=== PATIENT | female | born 1970 | race Caucasian/White ===

== ENCOUNTER → 2018-02-15 | Outpatient (REF) ==
[~2018-02-15] MED LIST: FLONASE NASAL S16 GM NS; NORCO 325 MG-51 TAB PO; NUVARING1 ICR VG; SINGULAIR 110 MG/TAB PO; ZOFRAN ODT4 MG PO
[2018-02-15 15:14] LABS: THYROID STIMULATING HORMONE 3.57 uIU/mL (0.465-4.680)
== END ==
LOC: ZLAB.WCH 14:24
PROVIDERS: Nurse Practitioner Family
DX: Z01.89 Encounter for other specified special examinations (principal)

== ENCOUNTER → 2018-02-22 | Outpatient (REF) | LOC: COL.CARD 16:20 | DX: Z01.818 Encounter for other preprocedural examination (principal) ==

== ENCOUNTER 2018-03-11 07:05 | Emergency (ER) | payer BC ==
[~2018-03-11] VITALS: Ht 162.6 cm; Wt 59.1 kg
[2018-03-11 07:09] VITALS: BP 161/103; PULSE 93; TEMP 98.8
[2018-03-11] MEDS ORDERED: ATARAX50 MG PO (07:44)
[2018-03-11] MEDS ORDERED: LUNESTA 1MG TAB1 MG PO (07:44)
[2018-03-11] MEDS ORDERED: CYMBALTA 30MG30 MG PO (07:57)
== END 2018-03-11 08:06 | disposition home or self-care (01) ==
LOC: COL.ER 07:05
DX: F41.9 Anxiety disorder, unspecified (principal); I10 Essential (primary) hypertension; Z88.2 Allergy status to sulfonamides